=== PATIENT | male | born 1930 | race Caucasian/White ===

== ENCOUNTER 2017-12-21 06:03 | Inpatient (IN) ==
[2017-12-14 14:57] LABS: Basophils % 0.7 % (0.0-0.8); Eosinophils # 0.1 10*3/uL (0.0-0.87); Eosinophils % 3.1 % (0.00-10.9); Hematocrit 35.9 VOL% (42.0-52.0); Hemoglobin 11.7 GM/DL (14.0-18.0); Immature Granulocytes % 0.2 %; Immature Granulocytes Absolute 0.01 #; Lymphocytes # 0.8 10*3/uL (1.4-4.0); Lymphocytes % 18.9 % (21.2-54.2); Mean Corpuscular HGB Conc 32.6 GM/DL (32-36); Mean Corpuscular Hemoglobin 29 PG (27-34); Mean Corpuscular Volume 89.1 FL (87-102); Mean Platelet Volume 9.2 FL (9.6-12.0); Monocytes # 0.4 10*3/uL (0.11-0.8); Monocytes % 8.7 % (1.7-12.7); Neutrophils # 2.9 10*3/uL (1.4-7.4); Neutrophils % 68.4 % (38.7-73.9); Platelet Count 164 T/CUMM (130-400); Red Blood Count 4.03 MC/CUMM (3.8-5.5); White Blood Count 4.2 T/CUMM (4-12)
[2017-12-14 15:17] LABS: Albumin 3.7 G/DL (3.4-5.0); Bilirubin,Total 0.4 MG/DL (0.2-1.0); Calcium 8.7 MG/DL (8.5-10.1); Osmolality,Calculated 289.4 MOS/KG (273-304); Potassium 4.1 MMOL/L (3.5-5.1); Total Protein 6.7 G/DL (6.4-8.3)
[~2017-12-21 06:03] MED LIST: ceFAZolin 1,000 MG VIAL ONE
[2017-12-21] MEDS ORDERED: LIDOCAINE 2% TOP JELLY 20 ML VIAL INTRAURETH ONE (06:20)
[2017-12-21] MEDS ORDERED: THROMBIN TOPICAL (RECOMBINANT) 5,000 UNIT VIAL TOP ONE (06:20)
[2017-12-21] MEDS ORDERED: LIDOCAINE 1% 50 ML VIAL ONE (06:20)
[2017-12-21] MEDS ORDERED: TISSUE ADHESIVE 1 EACH APPLICATOR TOP ONE (06:20)
[2017-12-21] MEDS ORDERED: HEPARIN 5,000 UNIT/1 ML VIAL ONE (06:20)
[2017-12-21] MEDS: LACTATED RINGERS 1,000 ML IV SCH ×4 (06:31→20:41)
[2017-12-21] MEDS ORDERED: SOTALOL 80 MG TABLET PO ONE (06:49)
[2017-12-21] MEDS ORDERED: CARVEDILOL 12.5 MG TABLET ONE (06:56)
[2017-12-21] MEDS ORDERED: HEPARIN/NACL 0.9% 2 UNITS/ML 500 ML IV ONE (07:11)
[2017-12-21] MEDS ORDERED: HEPARIN/NACL 0.9% 2 UNITS/ML 3,000 ML IV ONE (07:18)
[2017-12-21] MEDS ORDERED: fentaNYL 100 MCG/2 ML VIAL ONE ×2 (07:35→10:53)
[2017-12-21] MEDS ORDERED: DOBUTamine 500 MG/250 ML PREMIX IV ONE (08:00)
[2017-12-21] MEDS ORDERED: HYDROmorphone 2 MG/1 ML VIAL IV PRN (10:14)
[2017-12-21] MEDS ORDERED: ONDANSETRON 4 MG/2 ML VIAL IV PRN ×2 (10:14→11:31)
[2017-12-21] MEDS ORDERED: METHOCARBAMOL 750 MG TABLET PO PRN (10:18)
[2017-12-21] MEDS ORDERED: NITROGLYCERIN SL 0.4 MG TABLET SL PRN (10:18)
[2017-12-21] MEDS ORDERED: SERTRALINE 25 MG TABLET PO PRN (10:18)
[2017-12-21] MEDS ORDERED: PROTAMINE SULFATE 50 MG/5 ML VIAL IV ONE (10:52)
[2017-12-21] MEDS ORDERED: ROCURONIUM 100 MG/10 ML VIAL IV ONE (10:52)
[2017-12-21] MEDS ORDERED: DESFLURANE 1 UNIT/15 MINUTE INH ONE (10:52)
[2017-12-21] MEDS ORDERED: HEPARIN 10,000 UNIT/10 ML VIAL ONE (10:52)
[2017-12-21] MEDS ORDERED: PROPOFOL 200 MG/20 ML VIAL IV ONE (10:52)
[2017-12-21] MEDS ORDERED: ETOMIDATE 40 MG/20 ML VIAL IV ONE (10:52)
[2017-12-21] MEDS ORDERED: GLYCOPYRROLATE 0.4 MG/2 ML VIAL ONE (10:52)
[2017-12-21] MEDS ORDERED: LACTATED RINGERS 1,000 ML IV ONE (10:53)
[2017-12-21] MEDS ORDERED: NEOSTIGMINE 10 MG/10 ML VIAL ONE (10:53)
[2017-12-21 11:02] LABS: Hematocrit 29.3 VOL% (42.0-52.0); Hemoglobin 9.5 GM/DL (14.0-18.0)
[2017-12-21] MEDS ORDERED: ONDANSETRON 4 MG/2 ML VIAL ONE (11:29)
[2017-12-21] MEDS ORDERED: MEPERIDINE 25 MG/1 ML VIAL ONE (11:29)
[2017-12-21] MEDS ORDERED: MEPERIDINE 25 MG/1 ML VIAL IV PRN (11:31)
[2017-12-21 11:33] LABS: Calcium 7.6 MG/DL (8.5-10.1); Osmolality,Calculated 289.1 MOS/KG (273-304); Potassium 4.3 MMOL/L (3.5-5.1)
[2017-12-21] MEDS: VASOPRESSIN 100 UNITS in SODIUM CHLORIDE 0.9% 95 ML IV SCH (11:42)
[2017-12-21] MEDS ORDERED: MULTIVITAMIN (CENTRUM) TABLET PO SCH (17:00)
[2017-12-21] MEDS ORDERED: SIMVASTATIN 20 MG TABLET PO SCH (21:00)
[2017-12-21] MEDS ORDERED: FUROSEMIDE 40 MG TABLET PO SCH (21:00)
[2017-12-21] MEDS: SOTALOL 80 MG TABLET PO SCH (21:52)
[2017-12-21] MEDS: CARVEDILOL 12.5 MG TABLET PO SCH (21:53)
[2017-12-21] MEDS: ISOSORBIDE DINITRATE 10 MG TABLET PO SCH (21:55)
[2017-12-21] MEDS: levETIRAcetam 250 MG TABLET PO SCH (21:55)
[2017-12-21] MEDS: OXYBUTYNIN 5 MG TABLET PO SCH (21:55)
[2017-12-21] MEDS: TERAZOSIN 5 MG CAPSULE PO SCH (21:56)
[2017-12-21] MEDS: ACETAMINOPHEN 325 MG TABLET PO PRN (23:43)
[2017-12-22] MEDS: LACTATED RINGERS 1,000 ML IV SCH ×4 (02:28→12:29)
[2017-12-22 06:23] LABS: Hematocrit 29.8 VOL% (42.0-52.0); Hemoglobin 9.9 GM/DL (14.0-18.0)
[2017-12-22 06:41] LABS: Calcium 8.4 MG/DL (8.5-10.1); Osmolality,Calculated 282.1 MOS/KG (273-304); Potassium 3.9 MMOL/L (3.5-5.1)
[2017-12-22] MEDS ORDERED: LEVOTHYROXINE 75 MCG TABLET PO SCH (07:00)
[2017-12-22] MEDS: VASOPRESSIN 100 UNITS in SODIUM CHLORIDE 0.9% 95 ML IV SCH (07:04)
[2017-12-22] MEDS ORDERED: CHOLECALCIFEROL 400 UNIT TABLET PO SCH (09:00)
[2017-12-22] MEDS ORDERED: CYANOCOBALAMIN 100 MCG TABLET PO SCH (09:00)
[2017-12-22] MEDS ORDERED: POTASSIUM CHLORIDE 10 MEQ TABLET PO SCH (09:00)
[2017-12-22] MEDS ORDERED: PANTOPRAZOLE 40 MG TABLET PO SCH (09:00)
[2017-12-22] MEDS ORDERED: FOLIC ACID 1 MG TABLET PO SCH (09:00)
[2017-12-22] MEDS ORDERED: ASPIRIN CHEW 81 MG TABLET PO SCH (09:00)
[2017-12-22] MEDS ORDERED: MELOXICAM 7.5 MG TABLET PO SCH (09:00)
[2017-12-22] MEDS ORDERED: MAGNESIUM OXIDE 400 MG TABLET PO SCH (09:00)
[2017-12-22] MEDS ORDERED: LISINOPRIL 20 MG TABLET PO SCH (09:00)
[2017-12-22] MEDS: ACETAMINOPHEN 325 MG TABLET PO PRN (09:03)
[2017-12-22] MEDS: CARVEDILOL 12.5 MG TABLET PO SCH (09:03)
[2017-12-22] MEDS: ISOSORBIDE DINITRATE 10 MG TABLET PO SCH (09:03)
[2017-12-22] MEDS: SOTALOL 80 MG TABLET PO SCH (09:04)
[2017-12-22] MEDS: levETIRAcetam 250 MG TABLET PO SCH (09:05)
[2017-12-22] MEDS: TERAZOSIN 5 MG CAPSULE PO SCH (09:05)
[2017-12-22] MEDS: OXYBUTYNIN 5 MG TABLET PO SCH (09:05)
[2017-12-22 10:58] VITALS: BP 130/69
[2017-12-22] MEDS ORDERED: CARVEDILOL 25 MG TABLET PO SCH (14:13)
== END 2017-12-22 14:45 | disposition home or self-care (01) | DRG 269 ==
LOC: N.SDSINP 06:03 → N.3E 08:52
PROVIDERS: ADMIT Surgery; ATTEND Surgery
PROC: IRERAAA (2017-12-21 07:05)

== ENCOUNTER 2018-11-30 22:44 | Inpatient (IN) ==
[2018-11-30] MEDS ORDERED: ONDANSETRON 4 MG/2 ML VIAL IV STA (23:19)
[2018-11-30] MEDS ORDERED: PANTOPRAZOLE 40 MG VIAL IV STA (23:19)
[2018-11-30] MEDS ORDERED: MORPHINE 4 MG/1 ML VIAL IV STA (23:19)
[2018-11-30] MEDS ORDERED: ALUM/MAG/SIMETH/LIDO VISC 1:1 30 ML BOTTLE PO STA (23:19)
[2018-11-30 23:56] LABS: Basophils # 0.1 10*3/uL (0.0-0.2); Basophils % 0.6 % (0.0-0.8); Eosinophils % 0.1 % (0.00-10.9); Hemoglobin 11.9 GM/DL (14.0-18.0); Immature Granulocytes % 0.8 %; Immature Granulocytes Absolute 0.07 #; Lymphocytes # 0.8 10*3/uL (1.4-4.0); Lymphocytes % 8.9 % (21.2-54.2); Mean Corpuscular HGB Conc 30.5 GM/DL (32-36); Mean Corpuscular Hemoglobin 28 PG (27-34); Mean Corpuscular Volume 90.5 FL (87-102); Mean Platelet Volume 10.1 FL (9.6-12.0); Monocytes # 0.5 10*3/uL (0.11-0.8); Monocytes % 5.7 % (1.7-12.7); Neutrophils # 7.2 10*3/uL (1.4-7.4); Neutrophils % 83.9 % (38.7-73.9); Platelet Count 203 T/CUMM (130-400); Red Blood Count 4.31 MC/CUMM (3.8-5.5); Red Cell Distribution Width 14.6 % (9.3-17.3); White Blood Count 8.5 T/CUMM (4-12)
[2018-12-01 00:06] LABS: Alanine Aminotransferase 21 U/L (16-61); Alkaline Phosphatase 70 U/L (45-117); Amylase 19 U/L (25-115); Aspartate Amino Transferase 18 U/L (0-37); Blood Urea Nitrogen 26 MG/DL (7-18); Calcium 9.5 MG/DL (8.5-10.1); Glucose 390 MG/DL (74-106); Lipase < 50.0 U/L (73-393); Osmolality,Calculated 295.7 MOS/KG (273-304); Potassium 4.5 MMOL/L (3.5-5.1); Sodium 138 MMOL/L (136-145); Total Protein 7.6 G/DL (6.4-8.3)
[2018-12-01 00:10] LABS: Apearance,Urine CLEAR (Clear); Bilirubin,Urine Negative (Negative); Blood, Urine Negative (Negative); Glucose,Urine (UA) >=500 mg/dL (Negative); Hyaline Casts,Urine 10 /LPF (0-3); Ketones,Urine 20 mg/dL (Negative); Mucus,Urine Occasional /LPF (Occasional); Nitrite,Urine Negative (Negative); Protein,Urine 100 MG/DL; Squamous Epithelial Cell,Urine Occasional /HPF (0-10); Urine Color Yellow (Yellow); Urine Specific Gravity 1.033 (1.001-1.035); Urine Urobilinogen < 2.0 EU/DL (0.2-1.0); WBC,Urine 2 /HPF (0-6)
[2018-12-01] MEDS ORDERED: hydrALAZINE 20 MG/1 ML VIAL ONE (00:22)
[2018-12-01] MEDS ORDERED: PIPERACILLIN/TAZOBACTAM 3,375 MG in SODIUM CHLORIDE 0.9% 100 ML IV STA (00:22)
[2018-12-01] MEDS ORDERED: hydrALAZINE 20 MG/1 ML VIAL IV STA (00:22)
[2018-12-01] MEDS ORDERED: INSULIN REGULAR 100 UNIT/ML SUBCUT STA (00:35)
[2018-12-01] MEDS ORDERED: FUROSEMIDE 40 MG/4 ML VIAL IV STA (01:46)
[2018-12-01] MEDS ORDERED: LABETALOL 20 MG/4 ML SYRINGE IV STA (01:46)
[2018-12-01] MEDS ORDERED: ONDANSETRON 4 MG/2 ML VIAL IV PRN (02:33)
[2018-12-01] MEDS ORDERED: METHOCARBAMOL 500 MG TABLET PO PRN (02:39)
[2018-12-01] MEDS ORDERED: LABETALOL 20 MG/4 ML SYRINGE IV PRN (02:43)
[2018-12-01] MEDS ORDERED: GLUCAGON 1 MG VIAL IM PRN (04:20)
[2018-12-01] MEDS ORDERED: DEXTROSE 50% 25 GM/50 ML SYRINGE IV PRN (04:20)
[2018-12-01 05:17] LABS: Basophils % 0.2 % (0.0-0.8); Hematocrit 33.4 VOL% (42.0-52.0); Hemoglobin 10.5 GM/DL (14.0-18.0); Immature Granulocytes % 0.9 %; Immature Granulocytes Absolute 0.05 #; Lymphocytes # 0.5 10*3/uL (1.4-4.0); Lymphocytes % 9.3 % (21.2-54.2); Mean Corpuscular HGB Conc 31.4 GM/DL (32-36); Mean Corpuscular Hemoglobin 28 PG (27-34); Mean Corpuscular Volume 88.1 FL (87-102); Mean Platelet Volume 10.2 FL (9.6-12.0); Monocytes # 0.4 10*3/uL (0.11-0.8); Monocytes % 7.7 % (1.7-12.7); Neutrophils # 4.6 10*3/uL (1.4-7.4); Neutrophils % 81.9 % (38.7-73.9); Platelet Count 168 T/CUMM (130-400); Red Blood Count 3.79 MC/CUMM (3.8-5.5); Red Cell Distribution Width 14.9 % (9.3-17.3); White Blood Count 5.6 T/CUMM (4-12)
[2018-12-01 05:37] LABS: Albumin 3.5 G/DL (3.4-5.0); Bilirubin,Total 1.3 MG/DL (0.2-1.0); Calcium 8.7 MG/DL (8.5-10.1); Osmolality,Calculated 291.5 MOS/KG (273-304); Potassium 3.5 MMOL/L (3.5-5.1); Total Protein 6.7 G/DL (6.4-8.3)
[2018-12-01] MEDS: LEVOTHYROXINE 75 MCG TABLET PO SCH (06:29)
[2018-12-01] MEDS: INSULIN REGULAR 100 UNIT/ML SUBCUT SCH ×4 (08:06→20:49)
[2018-12-01] MEDS: POTASSIUM CHLORIDE 10 MEQ TABLET PO SCH (08:34)
[2018-12-01] MEDS: ISOSORBIDE DINITRATE 10 MG TABLET PO SCH ×2 (08:34→20:48)
[2018-12-01] MEDS: CYANOCOBALAMIN 100 MCG TABLET PO SCH (08:35)
[2018-12-01] MEDS: MAGNESIUM OXIDE 400 MG TABLET PO SCH (08:35)
[2018-12-01] MEDS: FOLIC ACID 1 MG TABLET PO SCH (08:35)
[2018-12-01] MEDS: CHOLECALCIFEROL 400 UNIT TABLET PO SCH (08:35)
[2018-12-01] MEDS: PANTOPRAZOLE 40 MG TABLET PO SCH (08:35)
[2018-12-01] MEDS: SOTALOL 80 MG TABLET PO SCH ×2 (08:35→20:49)
[2018-12-01] MEDS: TERAZOSIN 5 MG CAPSULE PO SCH ×2 (08:35→20:49)
[2018-12-01] MEDS: OXYBUTYNIN 5 MG TABLET PO SCH ×2 (08:35→20:49)
[2018-12-01] MEDS: amLODIPine 10 MG TABLET PO SCH (08:35)
[2018-12-01] MEDS: levETIRAcetam 250 MG TABLET PO SCH ×2 (08:36→20:49)
[2018-12-01] MEDS: CARVEDILOL 25 MG TABLET PO SCH ×2 (08:36→16:24)
[2018-12-01] MEDS: ASPIRIN CHEW 81 MG TABLET PO SCH (08:36)
[2018-12-01] MEDS ORDERED: APIXABAN 2.5 MG TABLET PO SCH (09:00)
[2018-12-01] MEDS: FLUTICASONE 50 MCG NASAL SPRAY 16 GM BOTTLE BOTH NARES SCH (11:06)
[2018-12-01] MEDS: PIPERACILLIN/TAZOBACTAM 3,375 MG in SODIUM CHLORIDE 0.9% 100 ML IV SCH ×2 (12:09→18:12)
[2018-12-01] MEDS: MULTIVITAMIN (CENTRUM) TABLET PO SCH (16:23)
[2018-12-01] MEDS: SIMVASTATIN 20 MG TABLET PO SCH (20:49)
[2018-12-01] MEDS: FUROSEMIDE 20 MG TABLET PO SCH (20:49)
[2018-12-01] MEDS: cloNIDine 0.1 MG TABLET PO SCH (20:49)
[2018-12-02] MEDS: PIPERACILLIN/TAZOBACTAM 3,375 MG in SODIUM CHLORIDE 0.9% 100 ML IV SCH ×3 (03:26→17:59)
[2018-12-02] MEDS: LEVOTHYROXINE 75 MCG TABLET PO SCH (06:01)
[2018-12-02 06:19] LABS: Basophils % 0.9 % (0.0-0.8); Eosinophils # 0.2 10*3/uL (0.0-0.87); Eosinophils % 5.4 % (0.00-10.9); Hematocrit 32.4 VOL% (42.0-52.0); Immature Granulocytes % 0.7 %; Immature Granulocytes Absolute 0.03 #; Lymphocytes # 0.9 10*3/uL (1.4-4.0); Lymphocytes % 21.3 % (21.2-54.2); Mean Corpuscular HGB Conc 30.9 GM/DL (32-36); Mean Corpuscular Hemoglobin 28 PG (27-34); Mean Corpuscular Volume 89.8 FL (87-102); Mean Platelet Volume 10.2 FL (9.6-12.0); Monocytes # 0.5 10*3/uL (0.11-0.8); Neutrophils # 2.6 10*3/uL (1.4-7.4); Neutrophils % 60.7 % (38.7-73.9); Platelet Count 167 T/CUMM (130-400); Red Blood Count 3.61 MC/CUMM (3.8-5.5); Red Cell Distribution Width 14.9 % (9.3-17.3); White Blood Count 4.3 T/CUMM (4-12)
[2018-12-02 06:51] LABS: Albumin 3.1 G/DL (3.4-5.0); Bilirubin,Total 0.9 MG/DL (0.2-1.0); Calcium 8.2 MG/DL (8.5-10.1); Osmolality,Calculated 283.4 MOS/KG (273-304); Potassium 3.6 MMOL/L (3.5-5.1); Total Protein 6.2 G/DL (6.4-8.3)
[2018-12-02] MEDS: INSULIN REGULAR 100 UNIT/ML SUBCUT SCH ×4 (07:40→21:17)
[2018-12-02] MEDS: ISOSORBIDE DINITRATE 10 MG TABLET PO SCH ×2 (08:49→21:18)
[2018-12-02] MEDS: levETIRAcetam 250 MG TABLET PO SCH ×2 (08:49→21:18)
[2018-12-02] MEDS: amLODIPine 10 MG TABLET PO SCH (08:49)
[2018-12-02] MEDS: CARVEDILOL 25 MG TABLET PO SCH ×2 (08:50→16:42)
[2018-12-02] MEDS: SOTALOL 80 MG TABLET PO SCH ×2 (08:50→21:18)
[2018-12-02] MEDS: ASPIRIN CHEW 81 MG TABLET PO SCH (08:50)
[2018-12-02] MEDS: FLUTICASONE 50 MCG NASAL SPRAY 16 GM BOTTLE BOTH NARES SCH (08:51)
[2018-12-02] MEDS: PANTOPRAZOLE 40 MG TABLET PO SCH (08:51)
[2018-12-02] MEDS: POTASSIUM CHLORIDE 10 MEQ TABLET PO SCH (08:51)
[2018-12-02] MEDS: MAGNESIUM OXIDE 400 MG TABLET PO SCH (08:51)
[2018-12-02] MEDS: TERAZOSIN 5 MG CAPSULE PO SCH ×2 (08:51→21:18)
[2018-12-02] MEDS: FOLIC ACID 1 MG TABLET PO SCH (08:51)
[2018-12-02] MEDS: OXYBUTYNIN 5 MG TABLET PO SCH ×2 (08:51→21:18)
[2018-12-02] MEDS: CHOLECALCIFEROL 400 UNIT TABLET PO SCH (08:52)
[2018-12-02] MEDS: CYANOCOBALAMIN 100 MCG TABLET PO SCH (08:52)
[2018-12-02] MEDS ORDERED: fentaNYL 100 MCG/2 ML VIAL IV ONE (09:08)
[2018-12-02] MEDS ORDERED: MIDAZOLAM 2 MG/2 ML VIAL IV ONE (09:08)
[2018-12-02] MEDS ORDERED: DIAZEPAM 5 MG TABLET PO ONE (09:08)
[2018-12-02 09:43] LABS: INR 1.1; PT Patient Result 11.9 SECS
[2018-12-02] MEDS ORDERED: fentaNYL 100 MCG/2 ML VIAL ONE (10:28)
[2018-12-02] MEDS ORDERED: PHENOL 1.4% THROAT SPRAY 177 ML BOTTLE PO PRN (10:31)
[2018-12-02] MEDS ORDERED: hydrALAZINE 20 MG/1 ML VIAL IV PRN (11:51)
[2018-12-02] MEDS: MULTIVITAMIN (CENTRUM) TABLET PO SCH (16:42)
[2018-12-02] MEDS ORDERED: SERTRALINE 25 MG TABLET PO SCH (21:00)
[2018-12-02] MEDS: SIMVASTATIN 20 MG TABLET PO SCH (21:18)
[2018-12-02] MEDS: cloNIDine 0.1 MG TABLET PO SCH (21:18)
[2018-12-02] MEDS: MORPHINE 4 MG/1 ML VIAL IV PRN (21:18)
[2018-12-02] MEDS: FUROSEMIDE 20 MG TABLET PO SCH (21:18)
[2018-12-03] MEDS: PIPERACILLIN/TAZOBACTAM 3,375 MG in SODIUM CHLORIDE 0.9% 100 ML IV SCH (03:43)
[2018-12-03 04:05] LABS: Basophils % 0.4 % (0.0-0.8); Eosinophils # 0.3 10*3/uL (0.0-0.87); Eosinophils % 5.5 % (0.00-10.9); Hematocrit 30.1 VOL% (42.0-52.0); Hemoglobin 9.2 GM/DL (14.0-18.0); Immature Granulocytes % 0.4 %; Immature Granulocytes Absolute 0.02 #; Lymphocytes # 0.7 10*3/uL (1.4-4.0); Lymphocytes % 11.8 % (21.2-54.2); Mean Corpuscular HGB Conc 30.6 GM/DL (32-36); Mean Corpuscular Hemoglobin 28 PG (27-34); Mean Corpuscular Volume 90.4 FL (87-102); Mean Platelet Volume 9.6 FL (9.6-12.0); Monocytes # 0.6 10*3/uL (0.11-0.8); Monocytes % 11.3 % (1.7-12.7); Neutrophils % 70.6 % (38.7-73.9); Platelet Count 148 T/CUMM (130-400); Red Blood Count 3.33 MC/CUMM (3.8-5.5); Red Cell Distribution Width 14.6 % (9.3-17.3); White Blood Count 5.7 T/CUMM (4-12)
[2018-12-03 04:26] LABS: Albumin 2.8 G/DL (3.4-5.0); Bilirubin,Total 0.8 MG/DL (0.2-1.0); Calcium 7.8 MG/DL (8.5-10.1); Osmolality,Calculated 278.5 MOS/KG (273-304); Potassium 3.2 MMOL/L (3.5-5.1); Total Protein 5.6 G/DL (6.4-8.3)
[2018-12-03] MEDS: LEVOTHYROXINE 75 MCG TABLET PO SCH (06:03)
[2018-12-03] MEDS: MORPHINE 4 MG/1 ML VIAL IV PRN (06:45)
[2018-12-03] MEDS: INSULIN REGULAR 100 UNIT/ML SUBCUT SCH (07:35)
[2018-12-03] MEDS: CHOLECALCIFEROL 400 UNIT TABLET PO SCH (08:30)
[2018-12-03] MEDS: FOLIC ACID 1 MG TABLET PO SCH (08:30)
[2018-12-03] MEDS: CYANOCOBALAMIN 100 MCG TABLET PO SCH (08:30)
[2018-12-03] MEDS: CARVEDILOL 25 MG TABLET PO SCH (08:31)
[2018-12-03] MEDS: MAGNESIUM OXIDE 400 MG TABLET PO SCH (08:31)
[2018-12-03] MEDS: levETIRAcetam 250 MG TABLET PO SCH (08:31)
[2018-12-03] MEDS: ASPIRIN CHEW 81 MG TABLET PO SCH (08:31)
[2018-12-03] MEDS: PANTOPRAZOLE 40 MG TABLET PO SCH (08:31)
[2018-12-03] MEDS: amLODIPine 10 MG TABLET PO SCH (08:31)
[2018-12-03] MEDS: OXYBUTYNIN 5 MG TABLET PO SCH (08:32)
[2018-12-03] MEDS: SOTALOL 80 MG TABLET PO SCH (08:32)
[2018-12-03] MEDS: TERAZOSIN 5 MG CAPSULE PO SCH (08:33)
[2018-12-03] MEDS: ISOSORBIDE DINITRATE 10 MG TABLET PO SCH (08:33)
[2018-12-03] MEDS: POTASSIUM CHLORIDE 10 MEQ TABLET PO SCH (08:33)
[2018-12-03] MEDS: FLUTICASONE 50 MCG NASAL SPRAY 16 GM BOTTLE BOTH NARES SCH (08:33)
[2018-12-03 08:42] VITALS: BP 150/73
== END 2018-12-03 11:20 | disposition home or self-care (01) | DRG 445 ==
LOC: N.ED 22:44 → N.EDINP 12-01 02:33 → N.3E 12-01 03:30
PROVIDERS: ADMIT Hospitalist; ATTEND Hospitalist

== ENCOUNTER 2019-03-26 02:34 | Inpatient (IN) ==
[2019-03-26] MEDS ORDERED: ONDANSETRON 4 MG/2 ML VIAL IV STA (02:45)
[2019-03-26 03:17] LABS: Basophils % 0.4 % (0.0-0.8); Eosinophils % 0.1 % (0.00-10.9); Hematocrit 40.1 VOL% (42.0-52.0); Hemoglobin 12.3 GM/DL (14.0-18.0); Immature Granulocytes % 0.5 %; Immature Granulocytes Absolute 0.04 #; Lymphocytes # 0.5 10*3/uL (1.4-4.0); Lymphocytes % 6.2 % (21.2-54.2); Mean Corpuscular HGB Conc 30.7 GM/DL (32-36); Mean Corpuscular Volume 88.1 FL (87-102); Mean Platelet Volume 10.3 FL (9.6-12.0); Neutrophils % 87.8 % (38.7-73.9); Platelet Count 194 T/CUMM (130-400); Red Blood Count 4.55 MC/CUMM (3.8-5.5); Red Cell Distribution Width 16.3 % (9.3-17.3); White Blood Count 8.5 T/CUMM (4-12)
[2019-03-26 03:41] LABS: Bilirubin,Total 0.8 MG/DL (0.2-1.0); Calcium 9.2 MG/DL (8.5-10.1); Osmolality,Calculated 293.3 MOS/KG (273-304); Total Protein 7.5 G/DL (6.4-8.3)
[2019-03-26] MEDS ORDERED: hydrALAZINE 20 MG/1 ML VIAL IV STA (05:06)
[2019-03-26] MEDS ORDERED: MORPHINE 4 MG/1 ML VIAL IV PRN (05:07)
[2019-03-26] MEDS ORDERED: ONDANSETRON 4 MG/2 ML VIAL IV PRN (05:07)
[2019-03-26] MEDS: DEXTROSE 5% LACTATED RINGERS 1,000 ML IV SCH ×2 (05:35→19:06)
[2019-03-26] MEDS: PANTOPRAZOLE 40 MG VIAL IV SCH (10:16)
[2019-03-26] MEDS ORDERED: METHOCARBAMOL 750 MG TABLET PO PRN (11:41)
[2019-03-26] MEDS ORDERED: NITROGLYCERIN SL 0.4 MG TABLET SL PRN (11:41)
[2019-03-26] MEDS ORDERED: DEXTROSE 10% 25 GM/250 ML BAG IV PRN (13:18)
[2019-03-26] MEDS ORDERED: GLUCAGON 1 MG VIAL IM PRN (13:18)
[2019-03-26 13:48] LABS: Risk Ratio 3.53; Thyroid Stimulating Hormone 0.861 uIU/ml (0.358-3.74)
[2019-03-26] MEDS ORDERED: cloNIDine 0.1 MG TABLET PO ONE (14:14)
[2019-03-26] MEDS: PIPERACILLIN/TAZOBACTAM 3,375 MG in SODIUM CHLORIDE 0.9% 100 ML IV SCH (17:30)
[2019-03-26] MEDS: INSULIN LISPRO 100 UNIT/ML SUBCUT SCH ×2 (17:31→21:04)
[2019-03-26] MEDS: FUROSEMIDE 40 MG/4 ML VIAL IV SCH (17:32)
[2019-03-26] MEDS: MULTIVITAMIN (CENTRUM) TABLET PO SCH (17:34)
[2019-03-26] MEDS: SOTALOL 80 MG TABLET PO SCH (20:57)
[2019-03-26] MEDS: OXYBUTYNIN 5 MG TABLET PO SCH (20:57)
[2019-03-26] MEDS: SIMVASTATIN 20 MG TABLET PO SCH (20:58)
[2019-03-26] MEDS: ISOSORBIDE DINITRATE 10 MG TABLET PO SCH (20:58)
[2019-03-26] MEDS: CARVEDILOL 25 MG TABLET PO SCH (20:58)
[2019-03-26] MEDS: SERTRALINE 25 MG TABLET PO SCH (20:58)
[2019-03-26] MEDS: TERAZOSIN 5 MG CAPSULE PO SCH (20:59)
[2019-03-26] MEDS: levETIRAcetam 250 MG TABLET PO SCH (20:59)
[2019-03-26] MEDS ORDERED: FUROSEMIDE 40 MG TABLET PO SCH (21:00)
[2019-03-26] MEDS ORDERED: PANTOPRAZOLE 40 MG TABLET PO SCH (21:00)
[2019-03-26] MEDS ORDERED: cloNIDine 0.1 MG TABLET PO SCH ×2 (21:00)
[2019-03-26] MEDS: cloNIDine 0.1 MG TABLET PO SCH (21:03)
[2019-03-27] MEDS: PIPERACILLIN/TAZOBACTAM 3,375 MG in SODIUM CHLORIDE 0.9% 100 ML IV SCH ×4 (01:06→23:52)
[2019-03-27 05:35] LABS: Basophils % 0.5 % (0.0-0.8); Eosinophils % 0.2 % (0.00-10.9); Hematocrit 34.9 VOL% (42.0-52.0); Immature Granulocytes % 0.7 %; Immature Granulocytes Absolute 0.04 #; Lymphocytes # 0.7 10*3/uL (1.4-4.0); Lymphocytes % 11.2 % (21.2-54.2); Mean Corpuscular HGB Conc 31.5 GM/DL (32-36); Mean Platelet Volume 10.4 FL (9.6-12.0); Monocytes % 7.8 % (1.7-12.7); Neutrophils % 79.6 % (38.7-73.9); Platelet Count 144 T/CUMM (130-400); Red Blood Count 4.06 MC/CUMM (3.8-5.5); Red Cell Distribution Width 16.3 % (9.3-17.3); White Blood Count 5.9 T/CUMM (4-12)
[2019-03-27 06:01] LABS: Calcium 8.8 MG/DL (8.5-10.1)
[2019-03-27] MEDS: LEVOTHYROXINE 75 MCG TABLET PO SCH (06:31)
[2019-03-27] MEDS ORDERED: amLODIPine 10 MG TABLET PO SCH (09:00)
[2019-03-27] MEDS: LISINOPRIL 20 MG TABLET PO SCH (10:08)
[2019-03-27] MEDS: FUROSEMIDE 40 MG/4 ML VIAL IV SCH ×2 (10:10→20:40)
[2019-03-27] MEDS: PANTOPRAZOLE 40 MG VIAL IV SCH (10:14)
[2019-03-27] MEDS: levETIRAcetam 250 MG TABLET PO SCH ×2 (10:19→20:39)
[2019-03-27] MEDS: MELOXICAM 7.5 MG TABLET PO SCH (10:19)
[2019-03-27] MEDS: MAGNESIUM OXIDE 400 MG TABLET PO SCH (10:19)
[2019-03-27] MEDS: POTASSIUM CHLORIDE 10 MEQ TABLET PO SCH (10:20)
[2019-03-27] MEDS: TERAZOSIN 5 MG CAPSULE PO SCH ×2 (10:20→20:39)
[2019-03-27] MEDS: ISOSORBIDE DINITRATE 10 MG TABLET PO SCH ×2 (10:20→20:39)
[2019-03-27] MEDS: FOLIC ACID 1 MG TABLET PO SCH (10:21)
[2019-03-27] MEDS: CHOLECALCIFEROL 400 UNIT TABLET PO SCH (10:21)
[2019-03-27] MEDS: CYANOCOBALAMIN 100 MCG TABLET PO SCH (10:21)
[2019-03-27] MEDS: cloNIDine 0.1 MG TABLET PO SCH ×2 (10:22→20:39)
[2019-03-27] MEDS: CARVEDILOL 25 MG TABLET PO SCH ×2 (10:22→20:39)
[2019-03-27] MEDS: OXYBUTYNIN 5 MG TABLET PO SCH ×2 (10:22→20:40)
[2019-03-27] MEDS: INSULIN LISPRO 100 UNIT/ML SUBCUT SCH ×4 (10:23→20:46)
[2019-03-27] MEDS: SOTALOL 80 MG TABLET PO SCH ×2 (10:23→20:39)
[2019-03-27] MEDS: ASPIRIN CHEW 81 MG TABLET PO SCH (10:23)
[2019-03-27] MEDS: MULTIVITAMIN (CENTRUM) TABLET PO SCH (16:58)
[2019-03-27] MEDS: SERTRALINE 25 MG TABLET PO SCH (20:39)
[2019-03-27] MEDS: SIMVASTATIN 20 MG TABLET PO SCH (20:40)
[2019-03-27] MEDS: SPIRONOLACTONE 25 MG TABLET PO SCH (22:47)
[2019-03-28 05:12] LABS: Basophils % 0.6 % (0.0-0.8); Eosinophils # 0.2 10*3/uL (0.0-0.87); Eosinophils % 5.1 % (0.00-10.9); Hematocrit 31.4 VOL% (42.0-52.0); Hemoglobin 9.9 GM/DL (14.0-18.0); Immature Granulocytes % 0.6 %; Immature Granulocytes Absolute 0.03 #; Lymphocytes # 0.9 10*3/uL (1.4-4.0); Lymphocytes % 18.5 % (21.2-54.2); Mean Corpuscular HGB Conc 31.5 GM/DL (32-36); Mean Corpuscular Volume 85.8 FL (87-102); Mean Platelet Volume 10.1 FL (9.6-12.0); Monocytes % 12.6 % (1.7-12.7); Neutrophils % 62.6 % (38.7-73.9); Platelet Count 144 T/CUMM (130-400); Red Blood Count 3.66 MC/CUMM (3.8-5.5); White Blood Count 4.7 T/CUMM (4-12)
[2019-03-28 05:41] LABS: Calcium 8.6 MG/DL (8.5-10.1); Osmolality,Calculated 290.8 MOS/KG (273-304)
[2019-03-28] MEDS: LEVOTHYROXINE 75 MCG TABLET PO SCH (06:15)
[2019-03-28] MEDS ORDERED: POTASSIUM CHLORIDE 20 MEQ TABLET PO ONE (07:54)
[2019-03-28 08:04] VITALS: BP 155/67
[2019-03-28] MEDS: FUROSEMIDE 40 MG/4 ML VIAL IV SCH (08:25)
[2019-03-28] MEDS: PANTOPRAZOLE 40 MG VIAL IV SCH (08:26)
[2019-03-28] MEDS: ISOSORBIDE DINITRATE 10 MG TABLET PO SCH (08:28)
[2019-03-28] MEDS: SOTALOL 80 MG TABLET PO SCH (08:28)
[2019-03-28] MEDS: LISINOPRIL 20 MG TABLET PO SCH (08:28)
[2019-03-28] MEDS: POTASSIUM CHLORIDE 10 MEQ TABLET PO SCH (08:28)
[2019-03-28] MEDS: TERAZOSIN 5 MG CAPSULE PO SCH (08:28)
[2019-03-28] MEDS: FOLIC ACID 1 MG TABLET PO SCH (08:28)
[2019-03-28] MEDS: CHOLECALCIFEROL 400 UNIT TABLET PO SCH (08:28)
[2019-03-28] MEDS: MAGNESIUM OXIDE 400 MG TABLET PO SCH (08:28)
[2019-03-28] MEDS: CYANOCOBALAMIN 100 MCG TABLET PO SCH (08:28)
[2019-03-28] MEDS: cloNIDine 0.1 MG TABLET PO SCH (08:29)
[2019-03-28] MEDS: MELOXICAM 7.5 MG TABLET PO SCH (08:29)
[2019-03-28] MEDS: CARVEDILOL 25 MG TABLET PO SCH (08:29)
[2019-03-28] MEDS: SPIRONOLACTONE 25 MG TABLET PO SCH (08:30)
[2019-03-28] MEDS: OXYBUTYNIN 5 MG TABLET PO SCH (08:30)
[2019-03-28] MEDS: ASPIRIN CHEW 81 MG TABLET PO SCH (08:30)
[2019-03-28] MEDS: INSULIN LISPRO 100 UNIT/ML SUBCUT SCH (08:30)
[2019-03-28] MEDS: levETIRAcetam 250 MG TABLET PO SCH (08:30)
[2019-03-28] MEDS: PIPERACILLIN/TAZOBACTAM 3,375 MG in SODIUM CHLORIDE 0.9% 100 ML IV SCH (08:31)
[2019-03-28] MEDS ORDERED: amLODIPine 5 MG TABLET PO SCH (09:00)
[2019-03-28] MEDS ORDERED: amLODIPine 10 MG TABLET PO SCH (09:11)
[2019-03-28] MEDS ORDERED: FUROSEMIDE 40 MG TABLET PO SCH (16:00)
== END 2019-03-28 11:10 | disposition home or self-care (01) | DRG 291 ==
LOC: EDUNIT# → EDBD → N.ED 02:34 → SUATTDRO 05:07 → N.EDINP 05:07 → N.3E 06:01
PROVIDERS: ADMIT Surgery; ATTEND Family Medicine